=== PATIENT | female | born 1995 | race Asian ===

== ENCOUNTER 2018-12-03 21:56 | Emergency (ER) | payer OTHER ==
--- NOTE | 2018-12-03 22:55 | ED ---
Abdominal Pain/Female - HPI Summary HPI Summary: Patient complains of upper abdominal pain starting yesterday morning area of abdominal pain described as intermittent, worse with eating or drinking. Patient states she has not eaten any food and 30 hours, has been barely able to tolerate sips of water. Associated symptoms are nausea. Denies vomiting or diarrhea also denies fever, cough, sore throat, CP, SOB, V/D, change in urine, change in BM, vaginal symptoms. Medical history is none. Abdominal surgical history is none. Denies regular EtOH. Abdominal pain currently 610. No active nausea. Patient on Nexplanon. - History of Current Complaint Chief Complaint: EDAbdPain Stated Complaint: ABD PAIN Time Seen by Provider: 12/03/18 22:29 Hx Obtained From: Patient Onset/Duration: Sudden Onset, Lasting Hours Timing: Intermittent Episode Lasting Severity Initially: Moderate Severity Currently: Moderate Pain Intensity: 7 Pain Scale Used: 0-10 Numeric Location: Epigastric Radiates: No Character: Cramping, Colicy Aggravating Factor(s): Food Alleviating Factor(s): Nothing Associated Signs and Symptoms: Positive: Decreased Appetite, Nausea Allergies/Adverse Reactions: Allergies Allergy/AdvReac Type Severity Reaction Status Date / Time No Known Allergies Allergy Verified 12/03/18 22:07 PMH/Surg Hx/FS Hx/Imm Hx Endocrine/Hematology History: Denies: Hx Anticoagulant Therapy Cardiovascular History: Denies: Hx Pacemaker/ICD History: Denies: Hx Dialysis Musculoskeletal History: Denies: Hx Gout Sensory History: Denies: Hx Eye Prosthesis Opthamlomology History: Denies: Hx Legally Blind EENT History: Denies: Hx Deafness Neurological History: Denies: Hx Dementia Psychiatric History: Denies: Hx Autism Infectious Disease History: No Infectious Disease History: Reports: Traveled Outside the [place] in Last 30 Days - Social History Occupation: Student Alcohol Use: Occasionally Hx Substance Use: No Hx Tobacco Use: No Review of Systems Constitutional: Negative Eyes: Negative ENT: Negative Cardiovascular: Negative Respiratory: Negative Positive: Abdominal Pain, Nausea Genitourinary: Negative Musculoskeletal: Negative Skin: Negative Neurological: Negative Psychological: Normal All Other Systems Reviewed And Are Negative: Yes Physical Exam - Summary Physical Exam Summary: Mild tenderness to palpation in the epigastrium. Abdominal exam was unremarkable. Lungs clear to auscultation bilaterally. Triage Information Reviewed: Yes Vital Signs On Initial Exam: Initial Vitals Temp Pulse Resp BP Pulse Ox 98.5 F 71 18 125/77 100 12/03/18 22:03 12/03/18 22:03 12/03/18 22:03 12/03/18 22:03 12/03/18 22:03 Vital Signs Reviewed: Yes Appearance: Positive: Well-Appearing Skin: Positive: Warm Head/Face: Positive: Normal Head/Face Inspection Eyes: Positive: Normal Neck: Positive: Supple Respiratory/Lung Sounds: Positive: Clear to Auscultation Cardiovascular: Positive: Normal Abdomen Description: Positive: Other: Musculoskeletal: Positive: Normal Neurological: Positive: Normal Psychiatric: Positive: Normal AVPU Assessment: Alert - Remy Coma Scale Best Eye Response: 4 - Spontaneous Best Motor Response: 6 - Obeys Commands Best Verbal Response: 5 - Oriented Coma Scale Total: 15 Diagnostics - Vital Signs Vital Signs Temp Pulse Resp BP Pulse Ox 12/03/18 22:03 98.5 F 71 18 125/77 100 - Laboratory Result Diagrams: 12/03/18 22:50 12/03/18 22:50 Lab Statement: Any lab studies that have been ordered have been reviewed, and results considered in the medical decision making process. Abdominal Pain Fem Course/Dx - Course Course Of Treatment: Patient complains of upper abdominal pain starting yesterday morning area of abdominal pain described as intermittent, worse with eating or drinking. Patient states she has not eaten any food and 30 hours, has been barely able to tolerate sips of water. Associated symptoms are nausea. Denies vomiting or diarrhea also denies fever, cough, sore throat, CP, SOB, V/D, change in urine, change in BM, vaginal symptoms. Medical history is none. Abdominal surgical history is none. Denies regular EtOH. Abdominal pain currently 6/10. No active nausea. Patient on Nexplanon. Physical exam: Mild tenderness to palpation in the epigastrium. Abdominal exam was unremarkable. Lungs clear to auscultation bilaterally. Vital signs within normal limits. Labs unremarkable. Ultrasound gallbladder negative. Lipase negative. Patient experienced significant relief with GI cocktail. Likely diagnosis gastritis. Rx for omeprazole 20 mg daily. Rx for Zofran. Rx for lidocaine for breakthrough pain. Follow-up with GI Dr. Ross if symptoms persist. Patient understands and approves of plan. - Diagnoses Provider Diagnoses: Acute gastritis Discharge - Sign-Out/Discharge Documenting (check all that apply): Patient Departure Patient Received Moderate/Deep Sedation with Procedure: No - Discharge Plan Condition: Stable Disposition: HOME Prescriptions: Lidocaine 2% VISCOUS* [Xylocaine 2% Viscous*] 15 ml SWISH SPIT Q6H PRN #1 btl PRN Reason: Pain Omeprazole 20 mg PO DAILY 60 Days #60 capsule. Ondansetron ODT TAB* [Zofran 4 MG Odt TAB*] 4 mg PO Q8H PRN 4 Days #14 tab.odt PRN Reason: Nausea Patient Education Materials: Gastritis (ED) Referrals: No Primary Care Phys,NOPCP [Primary Care Provider] - Samson Holder DO [Doctor of Osteopathy] - Additional Instructions: Take omeprazole daily. Take Zofran as directed for nausea if necessary. Used lidocaine as directed if necessary for breakthrough pain. If symptoms persist follow-up with GI Dr. Rodriguez for endoscope evaluation. Return to the ED for any new or worsening symptoms - Billing Disposition and Condition Condition: STABLE Disposition: Home
[2018-12-03 23:00] LABS: ABS Basophils 0 10^3/ul (0-0.2); ABS Eosinophils 0.1 10^3/ul (0-0.6); ABS Lymphocytes 1.1 10^3/ul (1.0-4.8); ABS Monocytes 0.5 10^3/ul (0-0.8); ABS Neutrophils 2.9 10^3/ul (1.5-7.7); ABS Nucleated RBC 0 10^3/ul; Eosinophil % 1.3 %; Hematocrit 42 % (35-47); Lymphocyte % 23.8 %; Mean Corpuscular HGB Conc 33 g/dl (31-36); Mean Corpuscular Hemoglobin 30 pg (27-31); Mean Corpuscular Volume 91 fL (80-97); Nucleated Red Blood Cells % 0.1; Platelet Count 201 10^3/ul (150-450); Red Blood Count 4.62 10^6/ul (4.00-5.40); Red Cell Distribution Width 13 % (10.5-15); White Blood Count 4.5 10^3/ul (3.5-10.8)
[2018-12-03 23:15] LABS: ALT 11 U/L (7-52); AST 16 U/L (13-39); Albumin 4.5 g/dL (3.2-5.2); Albumin/Globulin Ratio 1.7 (1-3); Alkaline Phosphatase 50 U/L (34-104); Anion Gap 9 mmol/L (2-11); BUN/Creatinine Ratio 15.2 (8-20); Blood Urea Nitrogen 10 mg/dL (6-24); C Reactive Protein 63.41 mg/L (<8.01); CO2 Carbon Dioxide 27 mmol/L (22-32); Calcium 9.5 mg/dL (8.6-10.3); Chloride 101 mmol/L (101-111); EGFR African American 136.8 (>60); EGFR Non-African American 113.1 (>60); Globulin 2.7 g/dL (2-4); Glucose 97 mg/dL (70-100); Sodium 137 mmol/L (135-145); Total Protein 7.2 g/dL (6.4-8.9)
[2018-12-03 23:21] LABS: HCG Pregnancy < 0.60 mIU/mL
[2018-12-03] MEDS ORDERED: NS 0.9% 1000 ML** 1,000 ML IV.FLUID IV ONE (23:22)
[2018-12-04] MEDS ORDERED: Ondansetron ODT TAB* 4 MG PO ONE (00:39)
[2018-12-04] MEDS ORDERED: Lidocaine 2% VISCOUS* 15 ML UDC PO ONE (00:40)
[2018-12-04] MEDS ORDERED: Al Hydrox/Mg Hydrox/Simet LIQ* 30 ML UDC PO ONE (00:40)
[2018-12-04] MEDS ORDERED: Omeprazole CAP (NF) 20 MG CAP.DR PO ONE (01:43)
[2018-12-04 01:58] VITALS: BP 116/85
[2018-12-04] MEDS ORDERED: Pantoprazole TAB * 40 MG TAB PO ONE (02:00)
[2018-12-04] MEDS ORDERED: Pantoprazole TAB * 40 MG TAB ONE (02:01)
== END 2018-12-04 02:00 | disposition home or self-care (01) ==
LOC: ED 21:56
DX: K29.00 Acute gastritis without bleeding (principal)
CPT/HCPCS: 36415; 76705; 80053; 83605; 83690; 84702; 85025; 86140; 96360; 96361; 99283; A9270-GY